=== PATIENT | female | born 1940 | race Caucasian/White ===

== ENCOUNTER 2017-07-11 04:47 | Inpatient (IN) | payer OTHER ==
[2017-06-14 09:12] VITALS: BMI 35.0
--- NOTE | 2017-06-14 09:48 | PAT Medication Instructions ---
Service Date Jun 14, 2017. Current Home Medication List Alendronate/Cholecalciferol (Fosamax+D 70MG/2800 Iu), 1 TABLET PO WK Aspirin (Aspirin Ec), 81 MG PO QPM Cholecalciferol (Vitamin D3), 1 CAP PO QAM Fish Oil ([employer]-3), 1 CAP PO QAM Levothyroxine Sodium (Levothyroxine Sodium), 1 TAB PO QAM Lisinopril (Zestril), 10 MG PO QAM Loratadine (Claritin), 10 MG PO PRN Pantoprazole Sodium (Protonix), 40 MG PO QAM Rosuvastatin Calcium (Crestor), 10 MG PO QPM Tramadol (Ultram), 50 MG PO BID PRN for RN Trospium Chloride (Trospium Chloride Er), 60 MG PO QAM Medication Instructions For Your Scheduled Surgery Alendronate/Cholecalciferol (Fosamax+D 70MG/2800 Iu), 1 TABLET PO WK (OKAY TO CONTINUE DIRECTED) - Hold the following medications 2 weeks prior to surgery: Fish Oil ([employer]-3), 1 CAP PO QAM - Hold the following medications the morning of surgery: Cholecalciferol (Vitamin D3), 1 CAP PO QAM Lisinopril (Zestril), 10 MG PO QAM Loratadine (Claritin), 10 MG PO PRN Trospium Chloride (Trospium Chloride Er), 60 MG PO QAM - Take the following medications the morning of surgery with a sip of water: Tramadol (Ultram), 50 MG PO BID PRN for RN (OKAY TO TAKE UP TO 4 HOURS PRIOR TO SURGERY IF NEEDED) Pantoprazole Sodium (Protonix), 40 MG PO QAM Levothyroxine Sodium (Levothyroxine Sodium), 1 TAB PO QAM - Take the following medications as scheduled the night before surgery: Tramadol (Ultram), 50 MG PO BID PRN for RN (IF NEEDED) Rosuvastatin Calcium (Crestor), 10 MG PO QPM Loratadine (Claritin), 10 MG PO PRN (IF NEEDED) Aspirin (Aspirin Ec), 81 MG PO QPM (OKAY TO CONTINUE PER SURGEON) If you have any questions please call us at [phone] or [phone] or [phone]
[2017-06-14 10:28] LABS: PTT PATIENT 28.4 SECONDS (21.0-31.0)
--- NOTE | 2017-06-14 10:55 | DIAGNOSTIC IMAGING REPORT ---
CERVICAL SPINE 2 OR 3 VIEWS HISTORY: Preoperative evaluation PREOP, RHEUMATOID ARTHRITIS COMPARISON: None. FINDINGS: Cervical spine is imaged in the neutral flexion and extended positions. C1-C2 complex shows no evidence for instability. Alignment remains generally anatomic. Moderate degenerative disc change of the mid to lower cervical region. There is no fracture. IMPRESSION: No evidence for subluxation on a positional basis. Anatomic alignment in flexion as well as extension The above report was generated using voice recognition software. It may contain grammatical, syntax or spelling errors. Electronically signed by: Cyrus Turner M.D. 06/14/2017 10:53 AM Dictated Date/Time: 06/14/2017 10:52 AM
--- NOTE | 2017-06-14 11:02 | DIAGNOSTIC IMAGING REPORT ---
TWO VIEW CHEST CLINICAL HISTORY: Preoperative examination. FINDINGS: PA and lateral chest radiographs are obtained. No prior studies are available for comparison at the time of dictation. A moderate hiatal hernia is identified. The cardiomediastinal silhouette is unremarkable. There is atherosclerotic calcification of the thoracic aorta. Nonspecific interstitial thickening is noted there is no airspace consolidation or pleural effusion. There is no pneumothorax. The skeletal structures are osteopenic. Degenerative change and hyperkyphosis are noted in the thoracic spine. A moderate compression deformity is seen in the midthoracic region. IMPRESSION: 1. No active disease in the chest. 2. Hiatal hernia. Electronically signed by: Monroe Phillips M.D. 06/14/2017 11:01 AM Dictated Date/Time: 06/14/2017 10:52 AM
--- NOTE | 2017-06-15 14:23 | HISTORY & PHYSICAL EXAMINATION ---
DATE OF ADMISSION: 07/11/2017 CHIEF COMPLAINT: Right knee pain. HISTORY OF PRESENT ILLNESS: Ms. Veloz is a 77-year-old female with a 3-year history of right knee pain. She rates her pain at 10/10. She has pain with her daily activities. She has limited standing and walking tolerance. Pain is worse with weightbearing. The patient has had injections, bracing and uses a cane to ambulate. She is unable to take NSAIDs due to chronic kidney disease. Otherwise, she has failed conservative treatment and is scheduled for right knee replacement. PAST MEDICAL HISTORY: Hypertension and diabetes with an A1c of 5.9. She denies heart disease or DVT. PAST SURGICAL HISTORY: Cystoscopy. SOCIAL HISTORY: The patient rarely drinks alcohol. She denies tobacco use. She lives in a 2-story home with her grandson and is retired. FAMILY HISTORY: Negative for DVT. MEDICATIONS: Fosamax 70 mg, levothyroxine 25 mcg, lisinopril 10 mg, Crestor 10 mg, Claritin 10 mg, vitamin D 2000 units, aspirin 81 mg, omega 3 fish oil, calcium 600, and Protonix 40 mg. ALLERGIES: LIPITOR CAUSES MUSCLE PAIN. REVIEW OF SYSTEMS: See HPI. Ten other systems reviewed, all negative. PHYSICAL EXAMINATION: VITAL SIGNS: Height 4 feet 11 inches, weight 177 pounds, and BMI is 36. GENERAL: This is a well-developed and well-nourished female, who is alert and oriented x3. Mood and affect are appropriate. HEENT: Normocephalic and atraumatic. Mucous membranes moist and intact. NECK: Supple without murmurs, rubs or gallops. LUNGS: Clear to auscultation without wheezes or rhonchi. ABDOMEN: Soft and nontender. Bowel sounds are equal and active. EXTREMITIES: No ecchymosis, redness or warmth. She has no distal edema. She has +1 effusion. She has varus deformity. Range of motion is from 5-110 degrees with +1 medial laxity. She is neurovascularly intact with +5/5 strength. X-RAY EXAMINATION: AP and lateral views show joint space narrowing and osteophyte formation. IMPRESSION: Degenerative joint disease, right knee. PLAN: The patient will be admitted for a right total knee arthroplasty. We will plan on aspirin for DVT prophylaxis. The patient is going to have [facility] from physical therapy and a referral has been faxed.
[~2017-07-11] VITALS: Ht 149.9 cm; Wt 78.2 kg
[2017-07-11] VITALS (10 sets, daily range): BP systolic 96–162; BP diastolic 59–98; PULSE 60–94; TEMP 36.4–37.2; O2SAT 93–99; Ht 149.9 cm; Wt 78.2 kg
[~2017-07-11 04:47] MED LIST: ASPI81TA28 PO; CHOL2000 PO; CLR10 PO; CRS/10 PO; FSMD/70 PO; LEVO25TA5 PO; LISI-461 PO; OMEG10007 PO; PANT40TA PO; TRAM-10 PO; TROS1CAP2 PO
[2017-07-11] MEDS ORDERED: CEFAZOLIN 2000MG IV PUSH 10 ML IV SCH (06:00)
[2017-07-11] MEDS ORDERED: METOCLOPRAMIDE HCL 10 MG TAB PO SCH (06:00)
[2017-07-11] MEDS ORDERED: ROPIVACAINE 5MG/ML 30 ML 150 MG, BUPIVACAINE 0.5% MPF INJ 30 ML, EpINEphrine HCL INJ 0.... INFIL SCH ×8 (06:00)
[2017-07-11] MEDS ORDERED: ACETAMINOPHEN 500 MG TAB PO SCH (06:00)
[2017-07-11] MEDS ORDERED: LACTATED RINGER'S 1000ML 1,000 ML IV SCH (06:00)
[2017-07-11] MEDS ORDERED: FAMOTIDINE 20 MG TAB PO SCH (06:00)
[2017-07-11] MEDS ORDERED: DEXAMETHASONE 4 MG TAB PO SCH (06:00)
[2017-07-11] MEDS ORDERED: CeleBREX 200 MG CAP PO SCH (06:00)
[2017-07-11] MEDS ORDERED: LACTATED RINGER'S 1000ML 500 ML IV SCH (06:00)
[2017-07-11] MEDS ORDERED: GABAPENTIN 300 MG CAP PO SCH (06:00)
[2017-07-11] MEDS ORDERED: LACTATED RINGER'S 1000ML IV SCH (06:00)
[2017-07-11] MEDS ORDERED: BUPIVACAINE 0.5 % 5 MG/1 ML PF 10ML VIAL ONE (06:29)
[2017-07-11] MEDS ORDERED: ROPIVACAINE 0.5% 5 MG/ML 30 ML VIAL ONE (06:29)
[2017-07-11] MEDS: TRANEXAMIC ACID INJ 1,000 MG in SYRINGE 0 ML IV SCH ×2 (06:30→06:45)
[2017-07-11] MEDS ORDERED: MIDAZOLAM HCL 1 MG/ML 2ML VIAL ONE ×2 (06:46→06:47)
[2017-07-11] MEDS ORDERED: PROPOFOL IV EMULSION 10 MG/ML 20 ML VIAL IV ONE (06:46)
[2017-07-11] MEDS ORDERED: LIDOCAINE HCL 2% 2 ML VIAL (20MG/ML) ONE (06:46)
[2017-07-11] MEDS ORDERED: FENTANYL CITRATE INJ 50 MCG/1 ML 2 ML VIAL ONE (06:47)
[2017-07-11] MEDS ORDERED: ORTHO JOINT ANESTHETIC ONE (06:55)
[2017-07-11] MEDS ORDERED: BACITRACIN 50000 UNIT VIAL ONE (06:55)
[2017-07-11] MEDS ORDERED: POVIDONE-IODINE OP SOLN 30 ML BTL ONE (06:55)
--- NOTE | 2017-07-11 07:02 | History & Physical Bridge Note ---
H&P Re-Evaluation Bridge Note: I have examined the patient, reviewed the History & Physical and in the interval since the performance of the History & Physical I have noted the following changes of clinical significance: No changes noted
[2017-07-11] MEDS ORDERED: EpHEDrine SULFATE INJ 50 MG/ML AMP IV PRN (08:00)
[2017-07-11] MEDS ORDERED: PHENYLEPHRINE 100MCG/ML 5ML SYR IV PRN (08:00)
[2017-07-11] MEDS ORDERED: ONDANSETRON INJ 2 MG/ML 2 ML VIAL IV PRN (08:00)
[2017-07-11] MEDS ORDERED: ATROPINE SULFATE 0.1 MG/ML 5ML SYR IV PRN (08:00)
[2017-07-11] MEDS ORDERED: HYDROmorphone INJ 2 MG/ML SYR/VIAL IV PRN (08:00)
--- NOTE | 2017-07-11 09:34 | [facility] Post Operative Brief Note ---
Immediate Operative Summary Operative Date Jul 11, 2017. Pre-Operative Diagnosis Degenerative Joint Disease, Right Knee Post-Operative Diagnosis Degenerative Joint Disease, Right Knee Procedure(s) Performed Right Total Knee Arthroplasty Surgeon Dr Limon Manager Customer Service Surgeon(s) Mary Tran PA-C Estimated Blood Loss 25ml Findings Consistent with Post-Op Diagnosis Fluids (cc crystalloids) 1000 Specimens A: Right knee bone and tissue Drains None Anesthesia Type MAC Spinal Regional Complication(s) none Disposition Disposition: Recovery Room / PACU
[2017-07-11] MEDS: SODIUM CHLORIDE 0.9% 1000ML 1,000 ML IV SCH ×2 (09:42→19:28)
[2017-07-11] MEDS ORDERED: MoRPHine SULFATE 4 MG/ML 1 ML CARP\\VIAL IV PRN (09:45)
--- NOTE | 2017-07-11 10:05 | [facility] Operative Report ---
Operative Report Operative Date Jul 11, 2017. Pre-Operative Diagnosis Degenerative Joint Disease, Right Knee Post-Operative Diagnosis Degenerative Joint Disease, Right Knee Procedure(s) Performed Right Total Knee Arthroplasty Surgeon Dr Limon Map Colorer Surgeon(s) Mary Tran PA-C Estimated Blood Loss 25ml Findings see dictated op note Fluids 1000 Specimens A: Right knee bone and tissue Drains none Anesthesia spinal Complication(s) None Disposition Recovery Room / PACU Indications A 77-year-old female presents with long history of severe right knee tricompartmental DJD which is failed outpatient conservative treatments including NSAIDs, bracing, cortisone injections home walking/exercise program. Her symptoms have progressed to the point where it has been difficult for to perform normal activities of daily living. I have indicated the patient for a right total knee arthroplasty, the risks and benefits and complications of the procedure include but are not limited to infection bleeding damage to bone nerves vessels surrounding soft tissue, blood clots loss of function leg length discrepancy dislocation failure of the components need for additional surgery and . The patient wished to proceed with surgery at this time and informed consent was obtained. Appropriate clearances were obtained. Description of Procedure Components: Miryam Persona Femur size 7 narrow, Tibia size D, Poly size 13 PS, patella size 29 Following induction of spinal anesthesia, a tourniquet was applied to the proximal aspect of the thigh and the patient's right leg was prepped and draped in the usual sterile manner. A timeout was performed and site maye verified. Limb was exsanguinated with an esmarch bandage and tourniquet was inflated to 300 mmHg. A longitudinal midline incision was made over the anterior knee. Subcutaneous tissue was sharply dissected down to fascia. Electrocautery was used for hemostasis. Next a parapatellar arthrotomy was performed. Patella was everted and the knee was flexed. A porras retractor was used to expose the synovium above on the anterior aspect of the femur and removed down to bone. Next, the anterior fat pad was removed to aid in visualization. The medial face of the tibia was cleared of soft tissue first with a bovie and a clark elevator. This tissue was retracted posteriorly using a blunt hohmann. Next the extramedullary tibial cutting guide was placed to the anterior aspect of the tibia. The tibial resection level was set taking 2mm from the defective tibial condyle. The medial and lateral collateral ligament were protected with that homans. The tibia guide was removed and proximal tibial bone fragment removed utilizing straight osteotome, electrocautery and grant. Next, the distal femur intramedullary canal was accessed utilizing the step drill. The intramedullary distal femur cutting guide was placed into the canal and pinned into place. The distal femur was cut on the +0 setting. Next the cutting guide was removed and the femur was sized. Care was taken to ensure appropriate rubber goods supervisor all rotation and 3 degree holes were drilled. A size 7 4-in- 1 cutting block was placed on the distal end of the femur and secured into place with two short headed screws. To bent homans were placed to protect the medial and lateral collateral ligaments. The oscillating saw was used to cut anterior, posterior, anterior chamfer and posterior chamfer. The four and one cutting block was removed and bone fragments excised. Laminar drug safety coordinator was placed laterally and the ACL and PCL were removed followed by the medial meniscus and posterior medial osteophytes. Aquamantys was utilized for any posterior medial bleeders and Orthomix injected into the posterior medial capsule. A laminar drug safety coordinator was then placed in the medial compartment and the lateral meniscus and posterior osteophytes were removed. Aquamantys was utilized for any posterior lateral bleeders and Orthomix injected into the posterior lateral capsule. Next, drop madonna and spacer block were placed with the leg in flexion and extension to assess alignment and flexion/extension gaps. Next the proximal tibia was assessed and two bent Homans were placed medial and lateral to aid in visualization. The appropriate tibia size and rotation was selected and a size D tibial plate was pinned into place with appropriate rotation. Preparation of the tibia was completed utilizing the matching tibial drill and broach. I then turned my attention back to the distal femur in a trial femoral component was impacted into place. Appropriate femoral width was assessed and selected. Next the femur PS box cut guide was placed and cut made with the reciprocal saw and the PS box provisional placed. A trial size 10 tibia articular tray was placed and increased by 1mm increments sequentially to a size 13 and varus-valgus balance assessed in 0 degrees of extension and 30, 60 and 90 degrees of flexion. A final tibial articular surface size 13 was chosen. Assess was gained to the patella and caliper utilized to measure width. The patella reamer was utilized and remaining bone removed with oscillating saw. A size 29 patella button was selected and the patella pegs drilled. Trial patella button was placed and tracking was assessed. The knee was found to be well balanced, well aligned with excellent patella tracking. The trials were removed and final components were obtained and assembled. The knee was irrigated copiously with sterile saline solution mixed with bacitracin. Access to the proximal tibia was once again obtained utilizing to the homans and the proximal tibia and distal femur were dried with lap sponges. The final components were cemented into place and all excess cement was removed. A trial tibial articular surface was placed while cemented hardened. Knee stability was once again assessed and the final component inserted. The knee was injected with the remaining Orthomix solution and irrigated once more with sterile saline solution mixed with bacitracin. The capsulotomy was closed with #1 Vicryl followed by subcutaneous closure with 2-0 Vicryl suture and a 3- 0 V-lock suture. Skin closure was performed using Dermabond Prineo dressing followed by Olegario, 4 x 4s and alex wrap. The patient tolerated the procedure well and was taken to the PACU in stable condition. Due to the complex nature of the procedure, the entire surgery was performed with the operational assistance of Sugar Tran PA-C. The certified first assistant, under direct supervision, was involved in the actual performance of all aspects of the surgical procedure including hemostasis, tissue retraction and incision, instrument management, patient positioning, and wound closure. I attest to the content of the Intraoperative Record and any orders documented therein. Any exceptions are noted below. I attest to the content of the Intraoperative Record and any orders documented therein. Any exceptions are noted below.
--- NOTE | 2017-07-11 10:12 | Anesthesiology Progress Note ---
Anesthesia Post Op Note Date & Time Jul 11, 2017 at 10:12 Vital Signs Pain Intensity: 0 Vital Signs Past 12 Hours Date Time Temp Pulse Resp B/P (MAP) Pulse Ox O2 Delivery O2 Flow Rate FiO2 07/11/17 10:00 87 19 127/61 95 Oxymask 10 07/11/17 09:50 37.0 92 20 117/53 98 Oxymask 10 07/11/17 05:55 36.8 94 20 162/98 95 Room Air 07/11/17 05:49 36.8 94 20 162/98 (119) 95 Room Air Notes Mental Status: alert / awake / arousable, participated in evaluation Pt Amnestic to Procedure: Yes Nausea / Vomiting: adequately controlled Pain: adequately controlled Airway Patency, RR, SpO2: stable & adequate BP & HR: stable & adequate Hydration State: stable & adequate Anesthetic Complications: no major complications apparent
--- NOTE | 2017-07-11 10:14 | DIAGNOSTIC IMAGING REPORT ---
RIGHT KNEE 2 VIEWS History: Right total knee arthroplasty. Degenerative arthritis. Postop. FINDINGS: The patient is status post a right total knee arthroplasty. The hardware is intact. No fracture or dislocation. IMPRESSION: Right total knee arthroplasty. No evidence for hardware complication. Electronically signed by: Kayden Villagomez M.D. 07/11/2017 10:12 AM Dictated Date/Time: 07/11/2017 10:11 AM
--- NOTE | 2017-07-11 11:12 | Orthopedic Progress Note ---
Orthopedic Progress Note Date of Service Jul 11, 2017. Subjective Additional Notes: Postoperative progress note Patient seen at bedside comfortable still feeling the effects of the spinal anesthesia denies pain at this time denies nausea vomiting, chest pain or shortness of breath. Objective NAD, AOx3 RLE Vascular intact, +regional anesthesia, +2 DP pulse, compartments soft NT, dressing CDI Date Time Temp Pulse Resp B/P (MAP) Pulse Ox O2 Delivery O2 Flow Rate FiO2 07/11/17 10:20 78 12 127/64 94 Nasal Cannula 4 07/11/17 10:10 36.8 84 21 123/64 96 Nasal Cannula 4 07/11/17 10:00 87 19 127/61 95 Oxymask 10 07/11/17 09:50 37.0 92 20 117/53 98 Oxymask 10 07/11/17 05:55 36.8 94 20 162/98 95 Room Air 07/11/17 05:49 36.8 94 20 162/98 (119) 95 Room Air Assessment & Plan Assessment: S/P R TKA -Ancef x 24 -WBAT RLE -PT/OT -Pain controlled -DVT PPT - ASA BID -PO XR - well aligned, well fixed prosthesis, no fracture or dislocation. -DC planing - Home with Home Health
[2017-07-11] MEDS ORDERED: PHARMACY GLYCEMIC MGMT CONSULT PRN (11:25)
--- NOTE | 2017-07-11 11:36 | Pharmacy Progress Note ---
Glycemic Control Intl Consult Date of Service Jul 11, 2017. Scope Glycemic Pharmacist consulted by Dr Limon on 07/11/17 for glycemic control and to write orders per [facility] inpatient glycemic control protocol Objective Weight (Kilograms): 78.200 Accuchecks BSG (last 24hrs): Test 07/11/17 05:26 07/11/17 09:55 Bedside Glucose 112 mg/dl (70-90) 131 mg/dl (70-90) Recent Pertinent Medications Outpatient Anti-diabetic Regimen: * N/A Risk Factors for Insulin Resistance: * Steroids * Recent Surgery Assessment & Plan ASSESSMENT: * 77 yo F s/p R TKA, POD #0 * No A1c data available - no home meds to indicate diabetes * Pt received dexamethasone 8 mg PO preop X 1, no further steroids on board * Initiate wt based Lantus/Novolog to maintain post-op BSGs <150 mg/dL * Loosen scale tomorrow as PO dexamethasone effects dissipate PLAN FOR INPATIENT GLYCEMIC CONTROL: * Basal insulin with LANTUS 15 units X 1 due to BSG >150 mg/dL * Correctional Insulin with NOVOLOG per scale ACHS * Goal Range: Low 110 mg/dL - High 140 mg/dL * Correction Factor: 30 mg/dL/unit * Nutritional / Prandial insulin per carb ratio of 1 unit per 10 grams CHO consumed * Please note that the plan above was derived based on current level of insulin resistance and hospital stress. These recommendations are appropriate for inpatient admission only. Plan of care upon discharge will need to be reassessed to avoid potential outpatient hypo/hyperglycemia. Thank you.
[2017-07-11] MEDS ORDERED: GLUCOSE 10 TABS/TUBE PO PRN (11:45)
[2017-07-11] MEDS ORDERED: GLUCOSE 40% GEL 15 GM TUBE PO PRN (11:45)
[2017-07-11] MEDS ORDERED: GLUCAGON FOR INJ 1 MG VIAL SQ PRN (11:45)
[2017-07-11] MEDS ORDERED: DEXTROSE 50% 50 ML SYR IV PRN (11:45)
[2017-07-11] MEDS: KETOROLAC TROMETHAMINE 15 MG/ML VIAL IV. SCH ×3 (13:15→23:34)
[2017-07-11] MEDS: INSULIN ASPART 100 UNITS/ML 3 ML PEN SC SCH ×4 (13:17→23:43)
[2017-07-11] MEDS ORDERED: LANTUS PER UNIT CHARGE SQ ONE (14:15)
[2017-07-11] MEDS: ACETAMINOPHEN 500 MG TAB PO SCH ×2 (14:35→21:18)
[2017-07-11] MEDS: CEFAZOLIN IV 1,000 MG in SYRINGE 2.5 ML IV SCH ×2 (16:29→23:34)
[2017-07-11] MEDS: OXYCODONE HCL IR 5 MG TAB (IMMEDIATE RELEASE) PO PRN (18:00)
[2017-07-11] MEDS ORDERED: [UNRECOGNIZED DRUG - OTHER] SCH (21:00)
[2017-07-11] MEDS ORDERED: SENNA 8.6 MG TAB PO SCH (21:00)
[2017-07-11] MEDS ORDERED: ROSUVASTATIN CALCIUM 10 MG TAB PO SCH (21:00)
[2017-07-11] MEDS: DOCUSATE SODIUM 100 MG CAP PO SCH (21:17)
[2017-07-11] MEDS: ASPIRIN 325 MG ECTAB PO SCH (21:17)
[2017-07-12 03:56] VITALS: BP 111/67; PULSE 66; TEMP 36.4; O2SAT 92
[2017-07-12] MEDS: INSULIN ASPART 100 UNITS/ML 3 ML PEN SC SCH ×3 (04:04→12:00)
[2017-07-12] MEDS: ACETAMINOPHEN 500 MG TAB PO SCH ×2 (05:21→14:30)
[2017-07-12] MEDS: SODIUM CHLORIDE 0.9% 1000ML 1,000 ML IV SCH (05:21)
[2017-07-12] MEDS: KETOROLAC TROMETHAMINE 15 MG/ML VIAL IV. SCH (05:23)
[2017-07-12] MEDS ORDERED: LEVOTHYROXINE 25 MCG TAB PO SCH (06:00)
[2017-07-12 06:53] LABS: HEMATOCRIT 33.8 % (37-47); HEMOGLOBIN 11.1 g/dL (12.0-16.0); MEAN CELL VOLUME 88.9 fL (80-100); MEAN CORPUSCULAR HEMOGLOBIN 29.2 pg (25-34); MEAN CORPUSCULAR HGB CONC 32.8 g/dl (32-36); MEAN PLATELET VOLUME 12.6 fL (7.4-10.4); PLATELET COUNT 205 K/uL (130-400); RED CELL DISTRIBUTION WIDTH CV 14.8 % (11.5-14.5); RED CELL DISTRIBUTION WIDTH SD 47.9 fL (36.4-46.3); WHITE BLOOD COUNT 10.63 K/uL (4.8-10.8)
[2017-07-12 07:33] LABS: CALCIUM 8.8 mg/dl (8.5-10.1); CREATININE 1.68 mg/dl (0.60-1.20); POTASSIUM 4.1 mmol/L (3.5-5.1)
[2017-07-12] MEDS: OXYCODONE HCL IR 5 MG TAB (IMMEDIATE RELEASE) PO PRN ×2 (07:39→14:29)
[2017-07-12] MEDS: ASPIRIN 325 MG ECTAB PO SCH (07:40)
[2017-07-12] MEDS: DOCUSATE SODIUM 100 MG CAP PO SCH (07:41)
--- NOTE | 2017-07-12 07:46 | Orthopedic Progress Note ---
Orthopedic Progress Note Date of Service Jul 12, 2017. Subjective Post OP Day: 1 Reports: feeling well, Denies: chest pain, SOB, nausea / vomiting, light headedness, calf pain Objective calves soft nontender, N/V intact, dressing C/D/I, A&O x3, toes mobile Date Time Temp Pulse Resp B/P (MAP) Pulse Ox O2 Delivery O2 Flow Rate FiO2 07/12/17 03:56 36.4 66 16 111/67 (82) 92 Room Air 07/11/17 22:51 36.4 60 18 113/65 (81) 93 Room Air 07/11/17 19:20 Room Air 07/11/17 18:00 65 117/72 (87) 07/11/17 15:11 36.5 66 18 96/59 (71) 95 Nasal Cannula 2.0 07/11/17 13:45 74 16 99/62 (74) 96 07/11/17 12:35 73 18 129/72 (91) 99 Nasal Cannula 4.0 07/11/17 11:35 69 18 109/66 (80) 98 07/11/17 11:05 76 18 108/67 (81) 97 07/11/17 10:35 Nasal Cannula 07/11/17 10:35 Nasal Cannula 2.0 07/11/17 10:35 37.2 77 14 120/70 (87) 93 Nasal Cannula 2.0 07/11/17 10:20 78 12 127/64 94 Nasal Cannula 4 07/11/17 10:10 36.8 84 21 123/64 96 Nasal Cannula 4 07/11/17 10:00 87 19 127/61 95 Oxymask 10 07/11/17 09:50 37.0 92 20 117/53 98 Oxymask 10 Laboratory Results 24 Hours: Test 07/12/17 06:02 Hematocrit 33.8 % Hemoglobin 11.1 g/dL Prothromb Time International Ratio 1.0 Prothrombin Time 10.6 SECONDS Assessment & Plan Assessment: S/P R TKA POD#1 -Ancef x 24 -WBAT RLE -PT/OT -Pain controlled -DVT PPT - ASA BID -PO XR - well aligned, well fixed prosthesis, no fracture or dislocation. -DC planing - Home with Home Health, REFERRAL PLACED TO [facility]. POSSIBLE DC LATER TODAY IF TOLERATES PT AND PAIN CONTROLLED.
[2017-07-12] MEDS ORDERED: ASPEC325 PO (07:49)
[2017-07-12] MEDS ORDERED: RXC5 PO (07:49)
[2017-07-12] MEDS ORDERED: ONDA8TAB6 PO (07:49)
[2017-07-12] MEDS ORDERED: ACET-24 PO (07:49)
--- NOTE | 2017-07-12 07:50 | Discharge Instructions ---
Discharge Instructions Date of Service Jul 12, 2017. Admission Reason for Admission: Right Knee Osteoarthritis Discharge Discharge Diagnosis / Problem: SP RIGHT TKA Discharge Goals Goal(s): Decrease discomfort, Improve function, Increase independence Activity Recommendations Activity Limitations: per Instructions/Follow-up section . Instructions / Follow-Up Instructions / Follow-Up ACTIVITY RECOMMENDATIONS: SELF CARE INSTRUCTIONS AFTER TOTAL KNEE REPLACEMENT A. You may need to continue a physical therapy program after discharge from the hospital. There are several options available to you. Your doctor will assist you in selecting the best one for you. 1. An out-patient facility 2 to 3 times a week for therapy or home therapy. 2. Continue working on all exercises taught to you in the hospital. Your goals should be to increase bending of your knee to 90 degrees and beyond and to fully straighten your knee. B. You may progress at your own pace from walking with a walker or crutches to a cane; then to no assistive devices. C. Make walking a part of your daily routine. Be up as much as comfortable with rest periods throughout the day. Rest with leg elevation is very important. Use the ice wrap frequently for the first 3-4 weeks. D. There are no restrictions on activities. You may ride in a car, shop, participate in earth boring machine operator and all social activities. E. Wear the long elastic stockings (ALTAGRACIA hose) 20 hours a day for 2 weeks after surgery. They can be removed several times a day for laundering and for a bath. F. You may shower, no tub baths until cleared by your doctor. SPECIAL CARE INSTRUCTIONS: VERY IMPORTANT TO READ AND REVIEW A. There are a few signs you need to watch for after you are home. Call [facility] if you notice any of the followin. Increased severe knee pain. Some pain is expected especially when you exercise. 2. Increased swelling in your leg or knee; pain or swelling of the calf muscle in either lower leg. 3. Any fluid drainage from the incision. 4. Shortness of breath or chest pain. B. Please call [facility] at if you have any concerns or questions about your operation or recovery. The doctor or his nurse will return your call promptly. C. You must take antibiotics before dental work, bladder, bowel or other surgery. Your doctor will provide you with a permanent care to carry describing this precaution. IMPORTANT: * REMEMBER TO TAKE ASPIRIN, 325mg, TWICE DAILY FOR 4 WEEKS UNLESS OTHERWISE DIRECTED. THIS IS YOUR BLOOD THINNER. * HIGH RISK PATIENTS MAY BE PRESCRIBED A STRONGER BLOOD THINNER. THIS WILL BE PROVIDED AT DISCHARGE. * CALL IF INCREASED PAIN, REDNESS, DRAINAGE OR FEVER GREATER THAT 101. * WEAR ALTAGRACIA HOSE 20 HOURS PER DAY FOR 2 WEEKS. DERMABOND Prineo- This is a mesh tape dressing that is covered with glue. It should remain in place until the incision is properly healed, usually 10-14 days. This dressing is designed to naturally slough off. You may trim the excess mesh tape as it peels off. Incision may be briefly wet in a shower. Dry immediately by blotting with a clean, dry towel. Do not bath or swim until instructed by your doctor. Do not scratch, rub, or pick at the dressing. Do not apply any topical ointments or lotions until dressing is completely removed and/or instructed by your doctor. There may be a small piece of suture material at one end of your incision. Do not pull or trim this. If it is bothersome or catching on clothing, you may cover it with a band-aid. FOLLOW UP VISIT: If appointment is not already scheduled: Please call [facility] to make a follow-up appointment for 2 weeks after your surgery at . Current Hospital Diet Patient's current hospital diet: Diabetes Type 2 Diet Discharge Diet Recommended Diet: Regular Diet Procedures Procedures Performed: Right Total Knee Arthroplasty Pending Studies Studies pending at discharge: no Laboratory Results Hemoglobin A1c Test 07/12/17 06:02 Range/Units Medical Emergencies . Who to Call and When: Medical Emergencies: If at any time you feel your situation is an emergency, please call 911 immediately. . Non-Emergent Contact Non-Emergency issues call your: Surgeon . "Provider Documentation" section prepared by Mary Tran. . VTE Core Measure Inpt VTE Proph given/why not?: Other Anticoagulation, T.E.D. Stockings, SCD's [place] Drug Monitoring Program Search Results: patient reviewed within database, no issues identified
[2017-07-12 07:53] VITALS: BP 126/72; PULSE 66; TEMP 36.5; O2SAT 97
[2017-07-12 08:26] VITALS: O2SAT 97
[2017-07-12] MEDS ORDERED: MULTIVITAMIN TAB PO SCH (09:00)
[2017-07-12] MEDS ORDERED: LISINOPRIL 10 MG TAB PO SCH (09:00)
[2017-07-12] MEDS ORDERED: LANTUS PER UNIT CHARGE SQ ONE (09:00)
[2017-07-12] MEDS ORDERED: PANTOprazole SOD 40 MG TAB PO SCH (09:00)
[2017-07-12 09:49] VITALS: BP 118/66; PULSE 77; O2SAT 97
[2017-07-12 11:49] VITALS: BP 110/68; PULSE 66; TEMP 36.3; O2SAT 97
[2017-07-12 14:38] VITALS: BP 110/68; PULSE 66; TEMP 36.3; O2SAT 97
[2017-07-12] MEDS ORDERED: CeleBREX 200 MG CAP PO SCH (21:00)
--- NOTE | 2017-07-14 08:35 | DISCHARGE SUMMARY ---
DISCHARGE DIAGNOSIS: Degenerative joint disease, right knee. SECONDARY DIAGNOSIS: None. CONSULTS: None. COMPLICATIONS: None. PROCEDURE: The patient underwent a right total knee arthroplasty with Dr. Limon on 07/11/2017. BRIEF HISTORY: Please see previously dictated history and physical. HOSPITAL SUMMARY: The patient was admitted on the above day for the above procedure. Procedure went without complication. Postop day 1, the patient was feeling well without complaints. She denied any chest pain or shortness of breath. Vital signs were stable. She was afebrile. Dressing was clean, dry and intact. She was neurovascularly intact. Calves were soft and nontender. Hemoglobin was 11.1. The patient began physical therapy per protocol. She was on aspirin 325 mg b.i.d. The patient began physical therapy and tolerated it well. She was discharged to home later that day in stable condition. For further review please see the chart. Lab, x-ray data and discharge instructions as per chart.
== END 2017-07-12 17:17 | disposition home health service (06) | DRG 470 ==
LOC: C.ACU 04:47 → C.3E 06:55 → ENRESERV 10:19
PROVIDERS: ADMIT Orthopaedic Surgery; ATTEND Orthopaedic Surgery
PROC: 0SRC0J9 Replacement of Right Knee Joint with Synthetic Substitute, Cemented, Open Approach (ICD-10-PCS; principal; 2017-07-11 07:15)
DX: M17.11 Unilateral primary osteoarthritis, right knee (principal); I12.9 Hypertensive chronic kidney disease with stage 1 through stage 4 chronic kidney disease, or unspecified chronic kidney disease; E11.22 Type 2 diabetes mellitus with diabetic chronic kidney disease; N18.3 Chronic kidney disease, stage 3 (moderate); E78.5 Hyperlipidemia, unspecified; E03.9 Hypothyroidism, unspecified; K21.9 Gastro-esophageal reflux disease without esophagitis; M81.0 Age-related osteoporosis without current pathological fracture; E66.9 Obesity, unspecified; Z68.35 Body mass index [BMI] 35.0-35.9, adult; Z79.82 Long term (current) use of aspirin; Z79.83 Long term (current) use of bisphosphonates; Z79.899 Other long term (current) drug therapy